=== PATIENT | female | born 1990 | race Caucasian/White ===

== ENCOUNTER 2021-11-18 01:53 | Inpatient (IN) | payer OTHER, SELFPAY ==
[2021-11-18] VITALS (22 sets, daily range): BP systolic 124–159; BP diastolic 47–94; PULSE 67–100; RESP 16; TEMP 36.6–37.1; O2SAT 97–98; BMI 24.7
--- NOTE | 2021-11-18 01:53 | LDADM ---
This patient, Servando Bird, was admitted to Labor/Delivery/Recovery 106 on 11/18/21 at 01:53. Plans for labor, pain management and were discussed with patient. Patient/family oriented to hospital policies and general routines including ID bracelet, bed and alarms, visiting hours, pain management, procedures, bathroom and other care routines, personal items, smoking policy, room service/diet and guest tray routines, security routines, and visiting hours. Patient/Family are encouraged to report perceived risks to care and to ask questions if they do not understand what they are told or what they should do. See OBIX for further documentation.
[2021-11-18 02:40] LABS: Hematocrit 32.2 % (37.0-47.0); Hemoglobin 10.1 g/dL (12.0-15.0); Mean Corpuscular Hemoglobin 26.4 pg (26-34); Mean Corpuscular Volume 84.1 fl (80-100); Red Blood Count 3.83 M/mm3 (4.2-5.4); White Blood Count 10.5 K/mm3 (4.5-10.0)
[2021-11-18 02:41] LABS: Basophils Absolute Auto 0.1 K/mm3 (0.0-0.1); Basophils Percent Auto 0.9 % (0.2-1.2); Eosinophils Absolute Auto 0.1 K/mm3 (0-0.3); Immature Granulocyte Absolute 0.04 K/mm3 (0.00-0.031); Immature Granulocyte Percent A 0.4 % (0-0.5); Lymphocytes Absolute Auto 2.94 K/mm3 (0.9-3.2); Lymphocytes Percent Auto 28.1 % (18.3-44.2); Mean Corpuscular HGB Conc 31.4 g/dl (32-36); Mean Platelet Volume 11.3 fl (7.4-10.4); Monocytes Percent Auto 9.8 % (2.6-8.5); Neutrophils Absolute Auto 6.3 K/mm3 (1.3-6.7); Neutrophils Percent Auto 59.8 % (45.5-73.1); Platelet Count Result 261 k/mm3 (150-375); Red Cell Distribution Width 13.1 % (11.5-14.5)
[2021-11-18] MEDS: OXYTOCIN 30 UNITS/NS 500 ML 30 UNITS/500 ML BAG 999 UNITS IV CONT (03:48)
--- NOTE | 2021-11-18 03:55 | PM.IMHP ---
H&P: HPI History of Present Illness Date/Time: 11/18/21 03:55 Chief Complaint: labor at term Narrative: 30-year-old 2 para 1 last menstrual period was 02/26/2021, EDC is 12/03/2021, confirmed by 12 week ultrasound presents at 37 and 6 7th weeks gestation in active labor . has been uncomplicated PMFSH Family History Family History Sibling Diabetes mellitus Social History Social History Smoking status: Never smoker Second hand tobacco smoke exposure: No Substance use: never Last use: last time few months ago Spiritual care concerns: No Meds Home Medications and Allergies Home Medications Medication Instructions Recorded Confirmed Type vit no.95-ferrous 1 tablet PO DAILY 11/08/21 11/18/21 History fumarate 28 mg-folic acid 800 mcg tablet () Allergies Allergy/AdvReac Type Severity Reaction Status Date / Time No Known Allergies Allergy Unverified 03/17/17 14:48 Vital Signs Vital Signs - 24 hr 11/18/21 02:13 11/18/21 02:19 11/18/21 02:31 Pulse Rate 87 88 Blood Pressure 136/85 150/94 H Oxygen Delivery Room Air 11/18/21 02:46 11/18/21 03:01 11/18/21 03:16 Pulse Rate 83 85 67 Blood Pressure 138/81 131/47 L 128/90 Oxygen Delivery 11/18/21 03:31 Pulse Rate 88 Blood Pressure 159/89 H Oxygen Delivery H&P: Results Labs Labs: Short CBC 11/18/21 Range/Units 02:13 WBC 10.5 H (4.5-10.0) K/mm3 Hgb 10.1 L (12.0-15.0) g/dL Hct 32.2 L (37.0-47.0) % Plt Count 261 (150-375) k/mm3 Assessment and Plan Assessment and plan (1) Term : Code(s): Z34.90 - Encounter for supervision of normal , unspecified, unspecified trimester Status: Acute Assessment and Plan: spontaneous vaginal delivery is expected (2) Active labor: Status: Acute
--- NOTE | 2021-11-18 03:59 | PM.OBPRVD ---
OB - Delivery Note Procedure Delivery date: 11/18/21 Induction method: None Delivery monitor: External FHT Route of delivery: Episiotomy description: None Laceration Description: None Quantitative Blood Loss (ml): 59 Anesthesia type: None Disposition: Floor [place] Baby Date of : 11/18/21 Time of : 03:45 Weeks of gestation at delivery: 38 gender: Male Weight (pounds): 6 Weight (ounces): 7 presentation: vertex position: Right Occiput Anterior Placenta delivery description: Spontaneous Cord Vessel Description: 3 Vessels score one minute: 9 score five minutes: 9
[2021-11-18] MEDS: OXYTOCIN 30 UNITS/NS 500 ML 30 UNITS/500 ML BAG 125 UNITS IV CONT (04:20)
[2021-11-18] MEDS: IBUPROFEN 600 MG TABLET PO ×2 (05:55→16:50)
--- NOTE | 2021-11-18 06:57 | OBPPTRN ---
Patient transferred to post room #291 via wheelchair. Support person present. Oriented to unit, room, information board, rooming in, admission packet and security measures. Patient verbalizes understanding.
[2021-11-18] MEDS: WITCH HAZEL 40 PADS 1 PAD TOPICAL (07:16)
[2021-11-18] MEDS: BENZOCAINE 20% AER SPR (*SP) 56 GM CAN 1 SPRAY TOPICAL (07:16)
[2021-11-18] MEDS: DOCUSATE SODIUM 100 MG CAPSULE PO ×2 (09:12→16:49)
[2021-11-19 04:00] VITALS: BP 136/95; PULSE 66; RESP 16; TEMP 36.6
[2021-11-19] MEDS: IBUPROFEN 600 MG TABLET PO (04:50)
[2021-11-19 05:19] LABS: Hematocrit 29.5 % (37.0-47.0); Hemoglobin 9.2 g/dL (12.0-15.0)
--- NOTE | 2021-11-19 06:59 | P.DS_ITS ---
DS: Admitting Diagnosis Discharge Date 11/19/2021 Admitting Diagnosis term and active labor DS: Discharge Diagnosis Discharge Diagnosis (1) Active labor: Status: Acute (2) Term : Code(s): Z34.90 - Encounter for supervision of normal , unspecified, unspecified trimester Status: Acute DS: Summary Hospital Course Reason for hospitalization: labor at term Hospital Course: patient was admitted in labor and underwent spontaneous vaginal delivery. Her hospital course was unremarkable. She remained afebrile. She was up, voiding w ithout difficulty, ambulating, generally without complaints. Time Spent with Patient Time attestation: Total time spent providing and/or coordinating discharge services: DS: Data Data Completed and Pending Labs on day of discharge: Labs from last 24 hours 11/19/21 04:49 Hgb 9.2 L Hct 29.5 L Discharge Plan Discharge Attending physician on discharge: Devendra Qureshi Consulting providers: Cheikh Hitchcock Discharging Clinician: Devendra Qureshi Patient Disposition: Home, Self-Care Activity: may shower, no straining and pelvic rest Diet: heart healthy Wound Care Instructions: follow printed instructions Patient Instructions: Antibiotic Form Stand Alone Forms: General Discharge Information Follow-up/Referrals: Devendra Qureshi MD [Physician] - Discharge Medications: Continued PNV cmb#95-ferrous fumarate-FA [] 28 mg iron- 800 mcg Tablet 1 tablet PO DAILY Date of admission: 11/18/21 01:53 Primary Care Provider: PHYSICIAN,PACKING TRACTOR MACHINE OPERATOR Admitting Provider: Devendra Qureshi Attending physician on admission: Devendra Qureshi Condition: Stable
--- NOTE | 2021-11-19 07:02 | PM.OBPNVD ---
OB - PN: Subj Subjective Date/time seen: 11/19/21 07:02 Patient comments: no complaints and pain well controlled baby status: doing well OB - PN: Obj Data Labs CBC & Chem 7: 11/19/21 04:49 Labs: Laboratory Results - last 24 hr 11/19/21 04:49 Hgb 9.2 L Hct 29.5 L OB - PN A/P Assessment and Plan (1) Term : Code(s): Z34.90 - Encounter for supervision of normal , unspecified, unspecified trimester Status: Acute Plan day: 1 Plan: routine care, discharge home and follow up 6 weeks Time Spent With Patient Time: Total time spent is greater than 50% in coordination of care (as documented) at patient's floor/unit and/or counseling patient: Time with patient: less than 15 minutes
[2021-11-19 07:30] VITALS: BP 131/86; PULSE 65; RESP 16; TEMP 36.4; O2SAT 100
[2021-11-19] MEDS: DOCUSATE SODIUM 100 MG CAPSULE PO (09:19)
[2021-11-19] MEDS: POLYSACCHARIDE IRON COMPLEX 150 MG CAPSULE PO (09:19)
[2021-11-19 14:41] LABS: Rapid Plasma Reagin Non-Reactive (NonReactive)
[2021-11-20 08:48] VITALS: BP 137/86; PULSE 72; RESP 20; TEMP 36.6; O2SAT 100
== END 2021-11-19 12:22 | disposition home or self-care (01) | DRG 807 ==
LOC: ANHLDR 02:24 → ANHOB2 07:06
PROVIDERS: Admitting Provider Obstetrics & Gynecology; Visit Provider Obstetrics & Gynecology
DX: O62.3 Precipitate labor (principal); Z37.0 Single live birth; Z3A.37 37 weeks gestation of pregnancy
CPT/HCPCS: 36415; 85014; 85018; 85025; 86592; 86850; 86900; 86901; A9270; J2590

== ENCOUNTER 2025-04-26 08:50 | Outpatient (CLI) | payer OTHER, SELFPAY ==
[2025-04-26 20:23] LABS: Alanine Aminotransferase 16 U/L (6-35); Albumin Level 5.1 g/dL (3.5-5.1); Alkaline Phosphatase 62 U/L (38-126); Anion Gap 10 mmol/L (4-12); Aspartate Amino Transferase 59 U/L (14-36); Bilirubin,Total 0.6 mg/dL (0.2-1.3); Blood Urea Nitrogen 10 mg/dL (7-17); Calcium 9.9 mg/dL (8.4-10.2); Carbon Dioxide 26 mmol/L (22-30); Chloride 101 mmol/L (98-107); Cholesterol 218 mg/dL (0-200); Estimated Glomerular Filt Rate > 60; Glucose 100 mg/dL (65-110); HDL Direct 61 mg/dL; Potassium 3.6 mmol/L (3.4-5.0); Sodium 137 mmol/L (137-145); Total Protein 8.0 g/dL (6.3-8.2); Triglycerides 107 mg/dL (<150)
[2025-04-26 20:38] LABS: Thyroid Stimulating Hormone 3.420 uIU/mL (0.465-4.680)
[2025-04-26 20:46] LABS: Hematocrit 43.1 % (37.0-47.0); Hemoglobin 13.8 g/dL (12.0-15.0); Immature Granulocyte Percent A 0.3 % (0-0.5); Lymphocytes Absolute Auto 2.08 K/mm3 (0.9-3.2); Mean Corpuscular HGB Conc 32.0 g/dl (32-36); Mean Corpuscular Hemoglobin 29.6 pg (26-34); Mean Corpuscular Volume 92.3 fl (80-100); Nucleated Red Blood Cells Absolute Auto 0.000 K/mm3 (0.0-0.012); Nucleated Red Blood Cells Perc 0.0 % (0.0-0.2); Platelet Count Result 228 k/mm3 (150-375); Red Blood Count 4.67 M/mm3 (4.2-5.4); White Blood Count 7.8 K/mm3 (4.5-10.0)
== END 2025-04-26 08:51 | disposition home or self-care (01) ==
PROVIDERS: PCP Student in an Organized Health Care Education/Training Program; Visit Provider Student in an Organized Health Care Education/Training Program
DX: Z00.00 Encounter for general adult medical examination without abnormal findings (principal); Z13.29 Encounter for screening for other suspected endocrine disorder; Z13.0 Encounter for screening for diseases of the blood and blood-forming organs and certain disorders involving the immune mechanism; Z13.220 Encounter for screening for lipoid disorders
CPT/HCPCS: 36415; 80053; 80061; 84443; 85025; 87798